=== PATIENT | female | born 2000 | race Caucasian/White ===

== ENCOUNTER 2022-08-21 13:36 | Emergency (ER) | payer OTHER ==
[2022-08-21 13:48] VITALS: BP 111/79; PULSE 98; RESP 18; TEMP 98.1; BMI 19.3
[2022-08-21] MEDS ORDERED: ONDANSETRON *ODT* 4 MG TABLET SL ONE (14:44)
[2022-08-21] MEDS ORDERED: ONDANSETRON *ODT* 4 MG TABLET ONE (14:47)
== END 2022-08-21 18:35 | disposition home or self-care (01) ==
LOC: JER 13:36 → JERFT 13:36
DX: R51.9 Headache, unspecified (principal); R04.1 Hemorrhage from throat
CPT/HCPCS: 70450-TC; 72125-TC; 99284-25; Q0162